=== PATIENT | female | born 1960 | race Caucasian/White ===

== ENCOUNTER 2025-04-10 18:14 | Inpatient (IN) | payer OTHER, SELFPAY ==
[2025-04-10] VITALS (11 sets, daily range): BP systolic 111–136; BP diastolic 59–72; BMI 19.9; BMI 19.6
[2025-04-10 12:53] LABS: Hematocrit 25.7 % (37.0-47.0); Hemoglobin 6.9 g/dL (12.0-16.0); Mean Corp Hgb Conc. 26.8 g/dL (33.0-37.0); Mean Corpuscular Volume 69.1 fL (81.0-99.0); Nucleated Red Blood Cells % 0 %; Platelet Count 461 10^3/uL (130-400); Red Cell Dist. Width 18.6 % (11.5-14.5)
[2025-04-10 12:56] LABS: ALT (SGPT) 11 U/L (0-35); AST (SGOT) 16 U/L (14-36); Albumin 4.5 g/dl (3.5-5.0); Alkaline Phosphatase 62 U/L (38-126); Blood Urea Nitrogen 20 mg/dl (7-17); Calcium 9.2 mg/dl (8.4-10.2); Carbon Dioxide 25 mmol/L (22-30); Chloride 103 mmol/L (98-107); Glucose 118 mg/dl (70-99); Potassium 4.4 mmol/L (3.5-5.1); Sodium 137 mmol/L (135-145); Total Protein 7.3 g/dl (6.3-8.2); eGFR > 60.00
[2025-04-10 13:40] LABS: Anisocytosis 2+; Basophilic Stippling 1+; Hypochromasia 2+; Normal RBC Morphology No; Polychromasia 2+
[2025-04-10 13:41] LABS: Acanthocytes FEW; Ovalocytes 1+; Stomatocytes 1+
--- NOTE | 2025-04-10 13:43 | ED.GENMED ---
History of Present Illness
General
Chief Complaint: Abnormal Lab Value
Source: patient
Time Seen by Provider: 04/10/25 13:19
History of Present Illness
History of Present Illness:
64-year-old female presents to the emergency room for evaluation of a low blood count as measured by her primary care provider. Patient went for family doctor visit because she is been having some abdominal bloating, difficulty having a bowel
movement, thin stools, fecal urgency and weight loss. She has noted some blood in her stool when she wipes. No fever, chills, nausea or vomiting. Patient states she has lost about 15 pounds in the past several months. Her appetite is decreased
because she begins to feel bloated when she does eat.
Phy Exam
Physical Exam
Physical Exam:
General: Awake, Alert, Oriented X3. No acute distress.
Vitals: unremarkable
Head: Atraumatic
Eyes: Pupils equal, EOMI
Throat: Airway intact, no exudates
Neck: Trachea midline
Lungs: Clear and equal b/l
Heart: Regular rate, no murmurs
Abd: Soft, Nontender, No pulsatile mass
Rectal: Exam that there is a stricture or abnormal tissue noted at the introitus. Maroon stool noted which is heme positive
Neuro: Nonfocal
Skin: Warm, dry, no rash
Extremities: pulses equal b/l, no edema
Course
Orders/Labs/Results
Orders:
Orders
04/10/25 12:32
Complete Blood Count/With Diff Urgent
Comprehensive Metabolic Panel Urgent
04/10/25 13:41
Iohexol [Omnipaque] See Protocol PO NOW STA
04/10/25 13:42
Type+Screen Urgent
CT Abd/pel W Iv And Oral Contr Urgent
Comment:
Reason For Exam: hematochezia, weight loss, change in stool
04/10/25 13:49
Ova & Parasites Giardia/Crypto AG [Giardia/Cryptosporidium Ag] Urgent
CONSTANCE Source: Feces/Stool
Specimen Description:
Date Specimen was Collected: 04/10/25
Time Specimen was Collected: 13:58
STOOL [C difficile Antigen & Toxins] Urgent
CONSTANCE Source: Feces/Stool
Specimen Description:
Date Specimen was Collected: 04/10/25
Time Specimen was Collected: 13:58
Stool Culture Urgent
CONSTANCE Source: Feces/Stool
Specimen Description:
Date Specimen was Collected: 04/10/25
Time Specimen was Collected: 13:58
04/10/25 17:28
Blood Bank Products [* Blood Bank Products] Urgent
Blood Bank Products: *Packed RBC Leuko (PRBC's
Quantity: 1
Transfuse Today: Yes
Reason: Anemia
04/10/25 17:32
Consult Colorectal Surgery [ColoRectal Surgery Consult] Routine
Consulting Provider: Jacek Salamanca
Was physician already notified: Yes
Reason for consult: Rectal mass with bleeding
04/10/25 17:51
Ferritin Urgent
Iron Urgent
TIBC [Total Iron Binding] Urgent
04/10/25 17:56
Admit/Transfer Patient As Directed
Co-Sign Provider:
Level of Care: Inpatient admission
Assign to:: Telemetry
Physician / Group: Rudi Williamson
Diagnosis: anemia, Rectal mass
Reason for Telemetry: Arrhythmia
Date to Stop Telemetry: 04/13/25
Time to Stop Telemetry: 11:00
Reason for Hospitalization: anemia, Rectal mass
Expected length of stay greater than two midnights?: Yes
ELOS- Estimated Length of Stay in days: 3
I certify the patient meets the requirements for IP care: Yes
Code Status As Directed
Resuscitation Status: Full Code
PRN Pain Medication Management As Directed
May give lesser potent ordered pain med per pt: Yes
preference::
Protocol:: Medication orders for pain may be administered in a
manner that supports deferring to patient preference
when the pt is:
- Requesting an ordered lesser potent pain medication.
Least to most potent pain medications are defined
as: acetaminophen < NSAID < tramadol < opioids
(morphine, oxycodone, hydromorphone).
- Requesting a lesser dose of the same medication IF
ORDERED.
- Requesting a less intrusive route of administration
if both routes are prescribed by the provider (PO <
IV).
04/10/25 18:00
Acetaminophen [Tylenol] 650 mg PO Q4HPRN PRN
04/10/25 18:35
Activity As Directed
Activity Level: Ambulate
Intake/ Output As Directed
Frequency: Per unit guidelines
Pneumatic Compression Sleeves As Directed
Type: Knee high
Vital Signs As Directed
Frequency: Per unit guidelines
Weight As Directed
Frequency: Once
Comment: on admission
Pulse Ox/spot Check [RESP] Routine
Quantity: 1
DX Deep Vein Thrombosis Video Routine
04/11/25 Breakfast
Clear Liquid
At Your Request: Full Participation
Does patient need a safe tray?: No
Complete Blood Count/No Diff IN AM
04/13/25 11:00
DC Protocol for Telemetry ONCE
Abnormal Lab Results
04/10/25 04/10/25 04/10/25
12:32 13:42 17:51
WBC 11.7 H 10^3/uL
(4.8-10.8)
RBC 3.72 L 10^6/uL
(4.20-5.40)
Hgb 6.9 L* g/dL
(12.0-16.0)
Hct 25.7 L %
(37.0-47.0)
MCV 69.1 L fL
(81.0-99.0)
MCH 18.5 L pg
(27.0-31.0)
MCHC 26.8 L g/dL
(33.0-37.0)
RDW 18.6 H %
(11.5-14.5)
Plt Count 461 H 10^3/uL
(130-400)
Abs Immat Gran (auto) 0.1 H 10^3/uL
(0-0.05)
Absolute Neuts (auto) 10.0 H 10^3/uL
(1.4-6.5)
Absolute Lymphs (auto) 1.1 L 10^3/uL
(1.2-3.4)
Neutrophils % 84.8 H %
(42.2-75.2)
Lymphocytes % 8.9 L %
(20.5-51.1)
BUN 20 H mg/dl
(7-17)
Glucose 118 H mg/dl
(70-99)
Iron 23 L ug/dl
(37-170)
% Saturation 5 L %
(20-50)
Ferritin 3.6 L ng/ml
(11.1-264.0)
Crossmatch IS Only See Detail
04/10/25 12:32
04/10/25 12:32
Vital Signs
Initial and Last Documented VS:
Initial Vital Signs
Temp Pulse Resp BP Pulse Ox
98.5 F 101 18 125/61 100
04/10/25 12:21 04/10/25 12:21 04/10/25 12:21 04/10/25 12:21 04/10/25 12:21
Last Documented Vital Signs
Temp Pulse Resp BP Pulse Ox
98.5 F 72 16 117/68 100
04/10/25 18:51 04/10/25 18:51 04/10/25 18:51 04/10/25 18:51 04/10/25 18:51
MDM/Problems Addressed
Differential Diagnosis Includes:
Iron deficiency anemia, colon cancer, rectal cancer, malabsorption,
MDM/Problems Addressed:
Patient presents with anemia. She is tolerating the anemia fairly well suggesting a relatively slow development. She had an abnormal rectal exam prompting imaging which shows what is likely a rectal mass. Given her symptomatic anemia we will
transfuse and hospitalize. Communicated with Dr. Shelley is on-call for colorectal surgery. He will see the patient during her hospitalization.
*Radiology
Radiology exam reviewed: radiology read reviewed
*Pulse Oximetry
SaO2: 100
Oxygen Mode of Delivery: Room air
Patient hypoxic: no
*Critical Care Note
Total Time (30-74mins, 75-104mins- exclusive of procedures): Not Applicable
ED Attending Note
-
Portions of this chart may have been created with voice recognition software.� Occasional wrong word or��sound alike� substitutions may have occurred due to the inherent limitations of voice recognition software.
Discharge Plan
Departure
Patient Disposition: Admit
Date of Disposition: 04/10/25
Time of Disposition: 17:28
Presentation/result/management discussed w/ accepting MD/DO: Hospitalist
Discharge Problem:
Symptomatic anemia, Rectal mass
Interventions
Interventions:
*Risk Screen - Suicide Last Done: 04/10/25 12:23
*General Assessment Last Done: 04/10/25 15:24
*Neglect/Abuse Screening Last Done: 04/10/25 12:23
*ED- Fall Risk Assessment Last Done: 04/10/25 15:24
*ED COVID-19 Vaccine History Last Done: 04/10/25 15:24
*ED Influenza Vaccine History Last Done: 04/10/25 15:24
*Nursing Disposition Last Done: 04/10/25 18:35
Discharge Date and Time
Discharge Date/Time: 04/10/25 18:42
[2025-04-10] MEDS: OMNIPAQUE 50 ML PO (13:47)
--- NOTE | 2025-04-10 17:18 | HPS.HSE ---
Family Physician
-
Family Physician: * NONE
Chief Complaint
-
abnormal out patient labs
History of Present Illness
Patient is a 64-year-old female with no significant past medical history who presented to [facility] ED for evaluation of abnormal out patient labs. Patient reports seeing primary provider recently for workup of IBS like symptoms. She has complaints of
abdominal bloating, difficulty having bowel movements, thin soft stools, urgency and unintentional weight loss. Patient states her PO intake has been decreased related to above mentioned symptoms. She states early this year she began attempting to
loose weight and then weight loss continued for approximately an additional 15 pounds that was unintentional. She reports symptoms have been present for the past 4-6 months. She denies any recent travel, illness, shortness of breath or chills.
Medical History
Past Medical History
Past Medical History: Reports None
Past Surgical History: Reports Other
Additional Past Surgical History:
x2
right bunionectomy
Social History
Tobacco: Former Smoker (quit 30 years ago )
Alcohol: None
Drug: None
Personal:
Living: With Family
Employment: Employed
Family History
Family History: Not pertinent
Allergies / Home Medications
Allergies reflects when Allergies were last updated in [employer].
Home Medications with original date entered in [employer]
Allergy/Medication List:
Allergies
Allergy/AdvReac Type Severity Reaction Status Date / Time
No Known Allergies Allergy Verified 04/10/25 15:34
Home Medications
No Meds [No Current Medications] 04/10/25
Review of Systems
-
History Source: Patient
Constitutional: Reports Weight Loss (unintentional 15 pounds ); Denies Fever or Chills
EENT: Denies Sore Throat
Respiratory: Denies Cough, Hemoptysis or Trouble Breathing
Cardiac: Denies Chest Pain, Diaphoresis, Palpitations or Syncope
Abdomen/GI: Reports Bloody Stools (intermittent small amounts of bright red blood with bowel movement ) and Other (difficulty having bowel movement, increased frequency, soft thin stools and abdominal bloating ); Denies Abdominal Pain, Nausea,
Vomiting or Diarrhea
: Denies Dysuria, Frequency or Urgency
Musculoskeletal: Denies Joint Pain
Skin: Denies Rash
Neurological: Denies Dizzy, Headache, Weakness or Numbness
Endocrine: Denies Polyuria or Polydipsia
Physical Exam
Vital Signs
Vital Signs
Temp Pulse Resp BP Pulse Ox
97.6 F 72 16 128/72 100
04/10/25 15:23 04/10/25 15:23 04/10/25 15:23 04/10/25 15:23 04/10/25 15:23
Physical Exam
General: Well Developed, No Apparent Distress, Comfortable and Conversant
HEENT: NormoCephalic, Moist mucous membranes, Nose Appears Normal and Ears Appear Normal
Respiratory: Clear and Non Labored Respirations; No Wheezes, Rales, Rhonchi or Crackles
Cardiac: S1/S2 and Regular Rhythm; No Murmur, Rub, Gallop or Peripheral Edema
GI: Soft, Non Tender, Non Distended and Normal Bowel Sounds
Rectal: Deferred by Provider
Musculoskeletal: No Clubbing, No Cyanosis and No Edema
Skin: Warm and IV/Catheter Site
Neuro: Awake and AO x 3
Hematologic/Lymphatic: No Lymphadenopathy
Psych: Calm and Intact Judgment/Insight
Laboratory Results
-
04/10/25 12:32
04/10/25 12:32
Laboratory Results
Total Bilirubin 0.6 mg/dl (0.2-1.3) 04/10/25 12:32
AST 16 U/L (14-36) 04/10/25 12:32
ALT 11 U/L (0-35) 04/10/25 12:32
Alkaline Phosphatase 62 U/L (38-126) 04/10/25 12:32
Data Reviewed
-
CT Scan: Report Reviewed by me (Abd/Pel: No acute pathology of the abdomen or pelvis. Circumferential rectal wall thickening concerning for a mass until proven otherwise. Direct visualization recommended. Too small to characterize hypodense
hepatic lesions likely small cysts or hemangiomas. Bilateral too small to characterize h)
Lab Data: Labs Reviewed by me (WBC 11.7, hgb 6.9, hct 25.7, neut 84.8, )
Impression/Plan
-
IMPRESSION/PLAN:
#abdominal bloating, difficulty producing bowel movement, thin soft stools, intermittent bright red blood with stool 2/2 GI bleed vs. iron deficiency anemia vs. colon/rectal cancer vs. IBD
WBC 11.7, hgb 6.9, hct 25.7, neut 84.8,
Abd/Pel CT: No acute pathology of the abdomen or pelvis.
Circumferential rectal wall thickening concerning for a mass until proven otherwise. Direct visualization recommended.
Too small to characterize hypodense hepatic lesions likely small cysts or hemangiomas.
Bilateral too small to characterize hypodense renal lesions likely benign cysts.
Minimal diverticulosis
- Admit to telemetry
- Consult Colorectal
- Blood consent obtained and scanned into chart
- 1 unit PRBCs ordered
- iron studies pending
- stool studies pending
- clear liquid diet
Code status: full code
DVT prophylaxis: SCDs
--- NOTE | 2025-04-10 17:22 | W.PN.UPDATE ---
Update Note
Progress Note Update
This note serves as an addendum to the H&P by Fernanda Shaver on April 10, 2025.
History of Presenting Illness
64-year-old female with no significant past medical history who presented to [facility] ED for evaluation of abnormal out patient labs. Patient reports seeing primary provider recently for workup of IBS like symptoms. She had been having complaints of
abdominal bloating, difficulty having bowel movements, thin soft stools, urgency and unintentional weight loss. Patient stated her PO intake had been decreased related to above mentioned symptoms. She states early this year she began attempting to
lose weight and then weight loss continued for approximately an additional 15 pounds that was unintentional. She reported that her symptoms have been present for the past 4-6 months. She denied any recent travel, illness, shortness of breath or
chills.
Vital Signs
Afebrile and Vital Signs Stable
Physical Exam
General: Not in acute distress
HEENT: Normocephalic, Moist mucous membranes
Respiratory: Clear to Auscultation Bilaterally
Cardiac: S1/S2 and Regular Rhythm
GI: Soft, Non Tender, Non Distended and Normal Bowel Sounds
Musculoskeletal: No Cyanosis and No Edema
Skin: Warm. Dry.
Neuro: Awake and AO x 3
Psych: Calm and Intact Judgment/Insight
Assessment/Plan
Suspected Acute Blood Loss Anemia Secondary to Rectal Mass
Iron Deficiency Anemia
Circumferential rectal wall thickening on CT Abdomen/Pelvis
- Admit to telemetry
- Consult Colorectal -- patient will need biopsy
- Blood consent obtained (patient signed blood consent) and scanned into chart
- 1 unit PRBCs ordered
- iron studies showed significant iron deficiency anemia
- IV Iron
- stool studies pending
- clear liquid diet -- okay to do as per colorectal surgery
Too small to characterize hypodense hepatic lesions likely small cysts or hemangiomas (as per radiologist's report on CT Chest)
Bilateral too small to characterize hypodense renal lesions likely benign cysts (as per radiologist's report on CT Chest)
Minimal diverticulosis
DVT Prophylaxis: SCDs. No chemical DVT prophylaxis given anemia/bleed.
[2025-04-10 18:10] LABS: Iron 23 ug/dl (37-170)
[2025-04-10 18:20] LABS: Total Iron Binding Capacity 442 ug/dl (265-497)
[2025-04-10 18:47] LABS: Ferritin 3.6 ng/ml (11.1-264.0)
[2025-04-11 03:00] VITALS: BP 142/76
[2025-04-11 07:39] VITALS: BP 134/60
[2025-04-11 08:53] LABS: Hematocrit 27.5 % (37.0-47.0); Hemoglobin 8.3 g/dL (12.0-16.0); Mean Corp Hgb Conc. 30.2 g/dL (33.0-37.0); Mean Corpuscular Volume 68.4 fL (81.0-99.0); Platelet Count 407 10^3/uL (130-400); Red Cell Dist. Width 21.0 % (11.5-14.5)
[2025-04-11 09:10] LABS: Blood Urea Nitrogen 14 mg/dl (7-17); Calcium 9.2 mg/dl (8.4-10.2); Carbon Dioxide 23 mmol/L (22-30); Chloride 103 mmol/L (98-107); Estimated Creatinine Clearance 64 ml/min; Glucose 78 mg/dl (70-99); Potassium 4.5 mmol/L (3.5-5.1); Sodium 133 mmol/L (135-145); eGFR > 60.00
[2025-04-11 11:30] VITALS: BP 128/62
--- NOTE | 2025-04-11 12:15 | CON.CRS ---
Consultation
-
Date/Time Consultation Performed: 04/11/25 0862
Medical History
-
Chief Complaint: rectal bleeding
History of Present Illness:
Ms Ponce is a 64 yo female with a h/o x2 and no prior colonoscopy who presents with ongoing bloating and difficulty passing bm's over the past months with constipation and passage of only small bm's. Initially, earlier this year she was
also trying to lose weight but then with her GI symptoms she continued to loose about 15 pounds unintentionally. She notes that she has seen blood around her stools when passing them and has noted blood when wiping as well with recent increase in
the amount. She has seen her PCP as an outpatient and was referred for GI work up but has not yet scheduled this. She notes gas pains currently but denies nausea, vomiting or belching. She is currently wearing a bad as she has noted some light
rectal bleeding.
Past Medical History
Past Surgical History: (x2) and Orthopedic (bunionectomy)
Social History
Tobacco: Former Smoker
Alcohol: None
Personal:
Living: With Family
Employment: Employed
Family History
Family History: Reviewed & Not Pertinent and Cancer (denies family h/o colon ca)
Allergies / Home Medications
Allergy/AdvReac Type Severity Reaction Status Date / Time
No Known Allergies Allergy Verified 04/10/25 15:34
�Medication �Instructions �Recorded �Confirmed �Type
No Meds [No Current Medications] 04/10/25 04/10/25 History
Review of Systems
-
History Source: Patient
All other systems: Negative unless noted
A 10 point review of systems was completed, and was negative except as per HPI.
Physical Exam
Vital Signs
Temp 98.6 F 04/11/25 11:30
Pulse 68 04/11/25 11:30
Resp Rate 16 04/11/25 11:30
Blood pressure 128/62 04/11/25 11:30
SaO2 98 04/11/25 11:30
04/10/25 04/11/25 04/12/25
06:59 06:59 06:59
Actual Weight 48.534 kg
Body Mass Index (BMI) 19.6
Lab Results / Allergies
04/11/25 08:24
04/11/25 08:31
WBC 13.0 10^3/uL (4.8-10.8) H 04/11/25 08:24
Hgb 8.3 g/dL (12.0-16.0) L D 04/11/25 08:24
Hct 27.5 % (37.0-47.0) L 04/11/25 08:24
Plt Count 407 10^3/uL (130-400) H 04/11/25 08:24
Abs Immat Gran (auto) 0.1 10^3/uL (0-0.05) H 04/10/25 12:32
Neutrophils % 84.8 % (42.2-75.2) H 04/10/25 12:32
Allergy/AdvReac Type Severity Reaction Status Date / Time
No Known Allergies Allergy Verified 04/10/25 15:34
Physical Exam
General: Well Developed and Well Nourished
HEENT: Normocephalic and Moist Mucous Membranes
Respiratory: Non Labored Respirations
GI: Soft, Non Tender, Non Distended and Other (no palpable lymphadenopathy)
Rectal: Red, Masses Palpated (non obstructing circumferential mass extending up above palpable level) and Other
Skin: Warm and Dry
Neuro: Awake, Alert and AO x 3
Psych: Calm
Assessment / Plan
-
64 yo female with h/o x2 and no prior colonoscopy who presents with ongoing bloating and difficulty passing bm's, rectal bleeding and unplanned weight loss. Palpable circumferential rectal mass on exam which was also noted on CT,
consistent with rectal Ca. No lymphadenopathy or evidence of metastatic spread on Ct a&p. Admitted overnight with anemia with good response to transfusion. AFVSS. Mild leukocytosis. Mild cramping gas pains but passing flatus/small stools.
Will need further work up for diagnosis and staging. Will need tissue sample first with colonoscopy which can be done prior to discharge with further workup/staging as an outpatient.
Plan:
Ok for regular diet today
Mag citrate x1 today
Clears and bowel prep tomorrow for colonoscopy
Tentative colonoscopy Sunday
CEA in am
Medical management as per primary team
[2025-04-11] MEDS: CITROMA 300 ML PO (14:35)
[2025-04-11] MEDS: FERRLECIT 110 MG IV (14:35)
[2025-04-11 15:26] VITALS: BP 118/62
--- NOTE | 2025-04-11 16:13 | CM ---
tire center manager reviewed patient's chart and met with patient and patient lives with her spouse and sons in a split level home with 4 steps to enter, patient is independent with adl's and ambulation, home no needs when stable.
PCP: Patient has a new PCP does not remember the name
Pharmacy: [facility] in [place].
--- NOTE | 2025-04-11 17:25 | W.PN.HOSP.TC ---
Today's Communication/Plan
-
See plan
Assessment / Plan
Assessment / Plan
Physical Exam
General: Not in acute distress
HEENT: Normocephalic, Moist mucous membranes
Respiratory: Clear to Auscultation Bilaterally
Cardiac: S1/S2 and Regular Rhythm
GI: Soft, Non Tender, Non Distended and Normal Bowel Sounds
Musculoskeletal: No Cyanosis and No Edema
Skin: Warm. Dry.
Neuro: Awake and AO x 3
Psych: Calm and Intact Judgment/Insight
Assessment/Plan
Suspected Acute Blood Loss Anemia Secondary to Rectal Mass
Iron Deficiency Anemia
Circumferential rectal wall thickening on CT Abdomen/Pelvis
- Continue to monitor on telemetry
- Consult Colorectal -- patient will need biopsy
- Blood consent obtained (patient signed blood consent) and scanned into chart
- 1 unit PRBCs ordered
- iron studies showed significant iron deficiency anemia
- IV Iron
- Regular Diet today, but clear liquids diet after midnight -- clear liquids diet and bowel prep tomorrow for colonoscopy
Too small to characterize hypodense hepatic lesions likely small cysts or hemangiomas (as per radiologist's report on CT Chest)
Bilateral too small to characterize hypodense renal lesions likely benign cysts (as per radiologist's report on CT Chest)
Minimal diverticulosis
DVT Prophylaxis: SCDs. No chemical DVT prophylaxis given anemia/bleed.
Anticipated Discharge: > 48 hours
Subjective/Interval History
-
Date of Service: April 11, 2025
Patient was seen and examined. She reported some blood in BM overnight. No other new significant symptoms or complaints.
Objective Data
-
Labs:
Laboratory Results
04/11/25 04/11/25
08:24 08:31
WBC 13.0 H
Hgb 8.3 L D
Hct 27.5 L
Plt Count 407 H
Sodium 133 L
Potassium 4.5
Chloride 103
Carbon Dioxide 23
BUN 14
Creatinine 0.7
Glucose 78
Calcium 9.2
Vital Signs:
Vital Signs
Temp Pulse Resp BP Pulse Ox
98.7 F 70 18 118/62 98
04/11/25 15:26 04/11/25 15:26 04/11/25 15:26 04/11/25 15:26 04/11/25 15:26
I&O
04/10/25 04/11/25 04/12/25
06:59 06:59 06:59
Intake Total 500 / 500
Balance 500 / 500
[2025-04-11 19:00] VITALS: BP 125/67
[2025-04-11 19:04] LABS: Hepatitis C Antibody Negative (Negative)
[2025-04-11 23:00] VITALS: BP 112/72
[2025-04-12 03:00] VITALS: BP 105/57
[2025-04-12 08:20] LABS: Hematocrit 28.9 % (37.0-47.0); Hemoglobin 8.5 g/dL (12.0-16.0); Mean Corp Hgb Conc. 29.4 g/dL (33.0-37.0); Mean Corpuscular Volume 71.7 fL (81.0-99.0); Platelet Count 410 10^3/uL (130-400); Red Cell Dist. Width 21.2 % (11.5-14.5)
[2025-04-12 08:49] VITALS: BP 117/65
[2025-04-12 08:57] LABS: Blood Urea Nitrogen 14 mg/dl (7-17); Calcium 9.2 mg/dl (8.4-10.2); Carbon Dioxide 28 mmol/L (22-30); Chloride 104 mmol/L (98-107); Estimated Creatinine Clearance 64 ml/min; Glucose 85 mg/dl (70-99); Magnesium 2.6 mg/dl (1.6-2.3); Potassium 4.5 mmol/L (3.5-5.1); Sodium 138 mmol/L (135-145); eGFR > 60.00
[2025-04-12 11:24] VITALS: BP 122/61
--- NOTE | 2025-04-12 13:05 | W.PN.CRS1 ---
Today's Communication / Plan
-
prep for colonoscopy in am
Assessment/Plan
-
64-year-old female admitted with anemia requiring a blood transfusion along with history of rectal bleeding and a change in bowel habits. Stools become smaller in caliber and she denies any rectal pain, abdominal distention or vomiting. She has
lost about 15 pounds since beginning of this year attribute to eating less. With palpable mass beginning at the top of the anal canal and extending upwards. No prior colonoscopy. Suspected rectal malignancy, most likely adenocarcinoma and less
likely squamous cell.
AFVSS
H/H stable s/p transfusion
+BM's after mag citrate
CEA pending
Plan:
Clear liquid and Miralax colonoscopy prep today
NPO after MN for colonoscopy
Anticipate will be able to go home after colonoscopy with outpatient follow up for continued staging/work up
Subjective Data
Subjective Data
Date of Service: April 12, 2025
Pt seen and examined at bedside with Dr. Salamanca. Denies n/v. Tolerated diet yesterday with multiple BM's after mag citrate. Denies pain.
Objective Data
-
Vital Signs
Temp Pulse Resp BP Pulse Ox
98.7 F 62 18 122/61 99
04/12/25 11:24 04/12/25 11:24 04/12/25 11:24 04/12/25 11:24 04/12/25 11:24
Intake & Output
04/11/25 04/12/25 04/13/25
06:59 06:59 06:59
Intake Total 500 / 500 870 / 870
Balance 500 / 500 870 / 870
Intake:
Oral fluids 870 / 870
Blood products 250 / 250
Blood Product Amount Infused ( 250 / 250
mL)
Packed Rbc Leukoreduced Unit 250 / 250
[id number]
Other:
Number of approximated MODERATE 1
amounts of urine
Lab Results
04/12/25 07:03
04/12/25 07:03
Physical Exam
-
General: No Acute Distress
Abdomen: Soft, Non Distended and Non Tender
[2025-04-12 15:32] VITALS: BP 121/66
[2025-04-12] MEDS: GAVILAX 238 GM PO (16:12)
[2025-04-12] MEDS: FERRLECIT 110 MG IV (17:46)
[2025-04-12] MEDS: FLUSH (NSS) 1 FLUSH IV (17:48)
[2025-04-12 19:30] VITALS: BP 103/79
--- NOTE | 2025-04-12 20:56 | W.PN.HOSP.TC ---
Addendum entered and electronically signed by Anastasia Drake MD 04/19/25 18:01:
for CDI: BMI not significant
Original Note:
Today's Communication/Plan
-
NPO after midnight for colonoscopy
Hgb stable
See plan
Assessment / Plan
Assessment / Plan
Physical Exam
General: Not in acute distress
HEENT: Normocephalic, Moist mucous membranes
Respiratory: Clear to Auscultation Bilaterally
Cardiac: S1/S2 and Regular Rhythm
GI: Soft, Non Tender, Non Distended and Normal Bowel Sounds
Musculoskeletal: No Cyanosis and No Edema
Skin: Warm. Dry.
Neuro: Awake and AO x 3
Psych: Calm and Intact Judgment/Insight
Assessment/Plan
Suspected Acute Blood Loss Anemia Secondary to Rectal Mass
Iron Deficiency Anemia
Circumferential rectal wall thickening on CT Abdomen/Pelvis
- Continue to monitor on telemetry
- Consult Colorectal -- patient will need biopsy
- Blood consent obtained (patient signed blood consent) and scanned into chart
- 1 unit PRBCs transfused on 04/10/25
- Iron studies showed significant iron deficiency anemia
- IV Iron, will need oral iron after discharge
- Clear liquids diet but NPO after midnight for colonoscopy
- Anticipate will be able to go home after colonoscopy with outpatient follow up for continued staging/work up
Too small to characterize hypodense hepatic lesions likely small cysts or hemangiomas (as per radiologist's report on CT Chest)
Bilateral too small to characterize hypodense renal lesions likely benign cysts (as per radiologist's report on CT Chest)
Minimal diverticulosis
DVT Prophylaxis: SCDs. No chemical DVT prophylaxis given anemia/bleed.
Anticipated Discharge: Within 24 hours
Subjective/Interval History
-
Date of Service: April 12, 2025
Patient was seen and examined. She denied any new symptoms or complaints.
Objective Data
-
Labs:
Laboratory Results
04/12/25
07:03
Sodium 138
Potassium 4.5
Chloride 104
Carbon Dioxide 28
BUN 14
Creatinine 0.7
Glucose 85
Calcium 9.2
Vital Signs:
Vital Signs
Temp Pulse Resp BP Pulse Ox
98.4 F 65 16 103/79 98
04/12/25 19:30 04/12/25 19:30 04/12/25 19:30 04/12/25 19:30 04/12/25 19:30
I&O
04/11/25 04/12/25 04/13/25
06:59 06:59 06:59
Intake Total 500 / 500 870 / 870 970 / 970
Balance 500 / 500 870 / 870 970 / 970
[2025-04-12 23:30] VITALS: BP 130/65
[2025-04-13 03:44] VITALS: BP 126/65
[2025-04-13 06:57] LABS: INR 1.21; PT 15.6 Sec (11.4-14.6)
[2025-04-13 06:58] LABS: APTT 39.4 Sec (23.4-35.0); Hematocrit 29.6 % (37.0-47.0); Hemoglobin 8.8 g/dL (12.0-16.0); Mean Corp Hgb Conc. 29.7 g/dL (33.0-37.0); Mean Corpuscular Volume 71.3 fL (81.0-99.0); Platelet Count 423 10^3/uL (130-400); Red Cell Dist. Width 21.5 % (11.5-14.5)
[2025-04-13 07:05] VITALS: BP 117/60
[2025-04-13 07:12] LABS: Blood Urea Nitrogen 9 mg/dl (7-17); Calcium 9.2 mg/dl (8.4-10.2); Carbon Dioxide 27 mmol/L (22-30); Chloride 103 mmol/L (98-107); Estimated Creatinine Clearance 74 ml/min; Glucose 100 mg/dl (70-99); Potassium 4.1 mmol/L (3.5-5.1); Sodium 135 mmol/L (135-145); eGFR > 60.00
[2025-04-13 08:40] VITALS: BP 122/68; BP_SYST 16
[2025-04-13 08:55] VITALS: BP 131/74; BP_SYST 14
--- NOTE | 2025-04-13 11:34 | W.PN.CRS1 ---
Today's Communication / Plan
-
okay for dc from our perspective with follow as an outpatient
Will need eventual pelvic MRI/CT chest
Assessment/Plan
-
64-year-old female admitted with anemia requiring a blood transfusion along with history of rectal bleeding and a change in bowel habits. Stools become smaller in caliber and she denies any rectal pain, abdominal distention or vomiting. She has
lost about 15 pounds since beginning of this year attribute to eating less. With palpable mass beginning at the top of the anal canal and extending upwards. No prior colonoscopy. Suspected rectal malignancy, most likely adenocarcinoma and less
likely squamous cell.
Plan:
-Await colonoscopy path
-Resume diet
-Okay for discharge with outpatient follow up for continued staging/work up. Dr. Salamanca's and Kaitlin Botello RN (cancer coordinator) phone numbers put in dispo. Discussed with patient. Dispo per primary team.
Subjective Data
Subjective Data
Date of Service: April 13, 2025
Patient is sleepy (just woke from colonoscopy). Denies abdominal pain.
Objective Data
-
Vital Signs
Temp Pulse Resp BP Pulse Ox
97.4 F 58 14 131/74 96
04/13/25 08:55 04/13/25 08:55 04/13/25 08:55 04/13/25 08:55 04/13/25 08:40
Intake & Output
04/12/25 04/13/25 04/14/25
06:59 06:59 06:59
Intake Total 870 / 870 2890 / 2890
Balance 870 / 870 2890 / 2890
Intake:
Oral fluids 870 / 870 2780 / 2780
IV piggybacks 110 / 110
Other:
Number of approximated MODERATE 1
amounts of urine
Number of approximated LARGE 4
amounts of urine
Number of unmeasured liquid
stools
Rectum 10
Lab Results
04/13/25 06:26
04/13/25 06:26
Physical Exam
-
General: No Acute Distress and AOx3
Abdomen: Soft, Non Distended and Non Tender
--- NOTE | 2025-04-13 12:11 | CM ---
Chart reviewed and patient is for discharge to home with family.
Plan; Home with family
--- NOTE | 2025-04-13 13:49 | W.DCSUMMARY ---
Discharge Summary
Discharge Data
Date of Admission: 04/10/25
Date of Discharge: 04/13/25
Total time spent discharging patient (in min): 35
-
Pending Results: Yes (Colonoscopy pathology)
Additional Pending Results:
Colonoscopy pathology
Hospital Course
Attending physician on day of discharge:
Anastasia Drake MD
Admission diagnosis:
Acute blood loss anemia
Discharge diagnosis:
Acute Blood Loss Anemia Secondary to Rectal Mass
Secondary diagnoses:
Iron deficiency anemia
Rectal mass
Colonic polyps
Consultations:
Colorectal surgery
Procedures:
Colonoscopy
Hospital course:
64F with no known PMH presenting with anemia on outpatient labs. Received 1 unit PRBC, IV iron. She had a history of rectal bleeding, and had CT scan that showed rectal wall thickening concerning for mass. This is suspected to be rectal
malignancy, she underwent colonoscopy and had biopsy of the mass as well as 2 polyps removed. Pathology reports are pending
Physical exam on discharge:
Gen: NAD
HEENT: PERRLA, EOMI, MMM, neck supple
Cards: RRR, no M/G/R
Resp: Lungs CTAB, no W/R/R
GI: soft, NT/ND/NABS
MSK: No edema
Skin: warm and dry, no rash, ulcer or lesions
Heme: No LAD
Psych: Calm
Neuro: AAOx3
Discharge disposition:
Home
Discharge Plan
-
Patient Disposition: Home (Routine Discharge)
Discharge Diagnosis/Procedures: Rectal mass
Condition: Good
Diet: Regular
Activity: No restrictions
Driving Restrictions: As prior to admission
Bathing Restrictions: None
Blood Work: Follow up with your primary care doctor to monitor your anemia (hemoglobin)
Referrals:
Jacek Salamanca MD [Active, ColoRectal] - in one to two weeks
Kaitlin Botello, RN [Nursing] - in one to two weeks
NONE,* [Family Provider, Internal Medicine]
Additional Discharge Medication Instructions: Please call the office to follow up with Dr. Salamanca as an outpatient to discuss your pathology from the colonoscopy you had done. A 7 mm polyp was found in the splenic flexure. An 8 mm polyp was found in
the recto-sigmoid colon. A 7cm ulcerated partially obstructing large mass was found at 1 cm proximal to the anus, in the rectum, in the distal rectum and in the mid rectum. Please also call Kaitlin Botello, the colorectal cancer coordinator, to help
arrange with your testing. You will need an eventual MRI of the pelvis and chest CT for staging. She will help you coordinate these tests.
CT chest also showed - Too small to characterize hypodense hepatic lesions likely small cysts or hemangiomas, Bilateral too small to characterize hypodense renal lesions likely benign cysts. These can be monitored outpatient.
Prescriptions:
New
ferrous sulfate [Feosol] 325 mg (65 mg iron) tablet
325 mg PO TID Qty: 90 0RF
docusate sodium [Colace] 100 mg capsule
100 mg PO BID Qty: 60 0RF
Discharge Orders:
Discharge Patient (As Directed); Ordered 04/13/25
Ordered By: Anastasia Drake
Discharge Date and Time
Print Language: SERBIAN
[2025-04-13] MEDS: FERRLECIT 110 MG IV (14:09)
[2025-04-13 15:16] VITALS: BP 121/56
[2025-04-13 19:56] LABS: CEA 2.42 ng/ml
--- NOTE | 2025-04-14 11:49 | PN.CDI ---
CDI
- -
CDI:
Physician Documentation Request
Admit Date: 04/10/25 18:14
Dear Doctor Clay,
Please review the following and provide your response in the progress notes.
Clinical Indicators:
Height: 5' 2'
Weight: 107 lbs
BMI: 19.6
If possible, please provide an associated diagnosis related to the abnormal BMI, such as:
Underweight
Cachectic
BMI is not significant
Other
BMI < or = to 19.9
Underweight
Weight Loss
Cachectic
Anorexia
Use of terms such as suspected, likely, concern for, or probable (associated with a specific diagnosis that is being evaluated, monitored, or treated as if it exists) are acceptable and can be coded in the inpatient setting, when documented at the
time of discharge.
Thank you,
Aliyah Kline RN, BSN
CDI Specialist
Available via [place] text
Please use your independent medical judgment in providing your response.
--- NOTE | 2025-04-14 11:58 | PN.CDI ---
CDI
- -
CDI:
Physician Documentation Request
Admit Date: 04/10/25 18:14
Dear Doctor,
Please review the following and provide your response in the progress notes.
Clinical Indicators:
Height: 5' 2'
Weight: 107 lbs
BMI: 19.6
If possible, please provide an associated diagnosis related to the abnormal BMI, such as:
Underweight
Cachectic
BMI is not significant
Other
BMI < or = to 19.9
Underweight
Weight Loss
Cachectic
Anorexia
Use of terms such as suspected, likely, concern for, or probable (associated with a specific diagnosis that is being evaluated, monitored, or treated as if it exists) are acceptable and can be coded in the inpatient setting, when documented at the
time of discharge.
Thank you,
Aliyah Kline RN, BSN
CDI Specialist
Available via [place] text
Please use your independent medical judgment in providing your response.
== END 2025-04-13 16:18 | disposition home or self-care (01) | DRG 375 ==
LOC: 4 WEST ACU 18:14
PROVIDERS: Nurse Practitioner Family; Registered Nurse; Student in an Organized Health Care Education/Training Program; ADMITTING PHYSICIAN Hospitalist; ATTENDING PHYSICIAN Internal Medicine; CONSULT PHYSICIAN Surgery; EMERGENCY PHYSICIAN Emergency Medicine
PROC: 30233N1 Transfusion of Nonautologous Red Blood Cells into Peripheral Vein, Percutaneous Approach (ICD-10-PCS; 2025-04-10)
PROC: 0DBL8ZX Excision of Transverse Colon, Via Natural or Artificial Opening Endoscopic, Diagnostic (ICD-10-PCS; 2025-04-13)
PROC: 0DBN8ZX Excision of Sigmoid Colon, Via Natural or Artificial Opening Endoscopic, Diagnostic (ICD-10-PCS; 2025-04-13)
PROC: 0DBP8ZX Excision of Rectum, Via Natural or Artificial Opening Endoscopic, Diagnostic (ICD-10-PCS; 2025-04-13)
DX: C20 Malignant neoplasm of rectum (principal); D62 Acute posthemorrhagic anemia; K56.690 Other partial intestinal obstruction; D12.3 Benign neoplasm of transverse colon; K63.5 Polyp of colon; K62.89 Other specified diseases of anus and rectum; D50.9 Iron deficiency anemia, unspecified; Z87.891 Personal history of nicotine dependence
CPT/HCPCS: 74177; 80048; 80053; 82378; 82728; 83540; 83550; 83735; 85025; 85027; 85610; 85730; 86803; 86850; 86900; 86901; 86920; 88305; 88342; 99284; J2916; P9016; Q9967

== ENCOUNTER → 2025-05-06 12:27 | Outpatient (REF) | payer OTHER, SELFPAY | LOC: MRI 3T 12:27 | PROVIDERS: ATTENDING PHYSICIAN Surgery | DX: C20 Malignant neoplasm of rectum (principal) | CPT/HCPCS: 72197; A9575 ==

== ENCOUNTER → 2025-05-07 15:22 | Outpatient (REF) | payer OTHER, SELFPAY | LOC: HWRAD 15:22 | PROVIDERS: ATTENDING PHYSICIAN Surgery | DX: C20 Malignant neoplasm of rectum (principal) | CPT/HCPCS: 71250 ==

== ENCOUNTER → 2025-05-21 11:53 | Outpatient (REF) | payer OTHER, SELFPAY | LOC: REG 11:53 | PROVIDERS: ATTENDING PHYSICIAN Internal Medicine Hematology & Oncology | DX: C20 Malignant neoplasm of rectum (principal); D50.0 Iron deficiency anemia secondary to blood loss (chronic) | CPT/HCPCS: 36415 ==

== ENCOUNTER 2025-06-03 06:25 | Day surgery (SDC) | payer OTHER, SELFPAY ==
[2025-06-01 13:58] VITALS: BMI 18.6
--- NOTE | 2025-06-01 16:40 | PTCARENOTE ---
Abn ECG, Dr. Albrecht notified, no new interventions requested.
[2025-06-03 08:22] VITALS: BP 162/77; BMI 18.6
[2025-06-03] MEDS: TYLENOL 1000 MG PO (08:30)
[2025-06-03] MEDS: NORMOSOL-R/PLASMALYTE-A 1000 IV (08:31)
[2025-06-03 10:18] VITALS: BP 102/61; BP 162/77
[2025-06-03 10:30] VITALS: BP 111/59
[2025-06-03 10:45] VITALS: BP 114/62
[2025-06-03 11:10] VITALS: BP 121/69
[2025-06-03 11:25] VITALS: BP 118/71
== END 2025-06-03 11:53 | disposition home or self-care (01) ==
LOC: SDS 06:25
PROVIDERS: ATTENDING PHYSICIAN Surgery
DX: C20 Malignant neoplasm of rectum (principal)
CPT/HCPCS: 36561; 71045; 76000; 93005